=== PATIENT | female | born 1985 ===

== ENCOUNTER 2016-11-28 11:31 | Inpatient (IN) | payer OTHER ==
[2016-11-28 11:37] VITALS: BMI 24.5
[2016-11-28] MEDS ORDERED: Dexamethasone 10 MG in Dextrose 5% In Water 50 ML IV ONE (12:30)
[2016-11-28] MEDS ORDERED: Sodium Chloride 0.9% 1,000 ML IV STA (12:30)
--- NOTE | 2016-11-28 12:37 | ED PDOC ---
HPI: CCC, URI, Sore Throat Time Seen by Provider: 11/28/16 12:08 Chief Complaint (Nursing): ENT Problem History Per: Patient, Family Additional Complaint(s): 31 yo female, no PMH, presents to ED with complaints of sore throat, fever, fatigue and weakness x 1 month now. Pt seen and evaluated by ENT and was diagnosed with [place]. Pt has been on 2 rounds of Zithomax and on Doxy for her sore throat, no relief. no headache or neck pain, no abdominal pain, nausea or vomiting. Pt presented to her PMD, Dr. Vieira, today, who referred her to ED for further evaluation and management. Past Medical History Reviewed: Nursing Documentation, Vital Signs Vital Signs: Last Vital Signs Temp 100 F H 11/28/16 11:36 Pulse 117 H 11/28/16 11:36 Resp BP 130/80 11/28/16 11:36 Pulse Ox 100 11/28/16 18:08 - Medical History PMH: No Chronic Diseases - Surgical History Surgical History: No Surg Hx - Family History Family History: States: No Known Family Hx - Living Arrangements Living Arrangements: With Family - Social History Current smoker - smoking cessation education provided: No Alcohol: Social Drugs: Denies - Allergies Allergies/Adverse Reactions: Allergies Allergy/AdvReac Type Severity Reaction Status Date / Time Penicillins Allergy ITCHING Verified 11/28/16 11:58 Review of Systems ROS Statement: Except As Marked, All Systems Reviewed And Found Negative Constitutional: Positive for: Fever, Weakness ENT: Positive for: Throat Pain Physical Exam - Reviewed Nursing Documentation Reviewed: Yes Vital Signs Reviewed: Yes - Physical Exam Appears: Positive for: Well, Non-toxic, No Acute Distress Head Exam: Positive for: ATRAUMATIC, NORMAL INSPECTION, NORMOCEPHALIC Skin: Positive for: Normal Color, Warm, DRY Eye Exam: Positive for: EOMI, Normal appearance, PERRL ENT: Positive for: Normal ENT Inspection, Pharyngeal Erythema, Tonsillar Exudate , Tonsillar Swelling Neck: Positive for: Normal, Painless ROM Cardiovascular/Chest: Positive for: Regular Rate, Rhythm Respiratory: Positive for: CNT, Normal Breath Sounds Gastrointestinal/Abdominal: Positive for: Normal Exam, Bowel Sounds, Soft Back: Positive for: Normal Inspection Extremity: Positive for: Normal ROM Neurologic/Psych: Positive for: Alert, Oriented - Laboratory Results Result Diagrams: 11/28/16 13:00 11/28/16 13:00 - ECG O2 Sat by Pulse Oximetry: 100 Medical Decision Making Medical Decision Making: IV access established and treatment initiated with IV Morphine, Toradol, Decadron and Clinda -after cultures obtained. Labs resulted and reviewed with Pt who demonstrated full understanding HR: 117 WBC: 16.[address] Impression: Mildly enlarged adenoids palatine tonsils and lingual tonsils. Findings may be post infectious/inflammatory in nature. The palatine tonsils are somewhat heterogeneous in part due to crossing streak and beam hardening artifact arising from dental amalgam. . No large fluid collection seen in the peritonsillar regions bilaterally. Bilateral jugulodigastric lymph nodes. Pt educated on results and demonstrated full understanding. ED MD, Dr. Pastor, aware. Case discussed with Dr. Vieira, who agree with admission at this time. DX: Tonsillitis, Leukocytosis, Early Sepsis Disposition - Clinical Impression Clinical Impression: Leukocytosis, Sepsis - Patient ED Disposition Is Patient to be Admitted: Yes - Disposition Referrals: En Gray MD [Staff Provider] - Disposition Time: 19:48 Condition: STABLE - Pt Status Changed To: Hospital Disposition Of: Observation - POA Present On Arrival: None
[2016-11-28 13:33] LABS: BASO % 0.3 % (0.0-2.0); EOS % 0.1 % (0.0-4.0); HEMATOCRIT 41.6 % (34.0-47.0); LYMPH # 1.2 K/uL (1.0-4.3); LYMPH % 6.9 % (20.0-40.0); MEAN CELL VOLUME 86.7 fl (81.0-99.0); MEAN CORPUSCULAR HEMOGLOBIN 28.7 pg (27.0-31.0); MEAN CORPUSCULAR HGB CONC 33.1 g/dL (33.0-37.0); MEAN PLATELET VOLUME 7.9 fl (7.2-11.7); MONO # 0.7 K/uL (0.0-0.8); NEUT % 88.7 % (50.0-75.0); PLATELET COUNT 328 K/uL (130-400); RED CELL DISTRIBUTION WIDTH 13.4 % (11.5-14.5); WHITE BLOOD COUNT 16.9 K/uL (4.8-10.8)
[2016-11-28 13:48] LABS: ALB/GLOB RATIO 1.2 (1.0-2.1); ALKALINE PHOSPHATASE 73 U/L (38-126); ALT/SGPT 28 U/L (9-52); AST/SGOT 19 U/L (14-36); BILIRUBIN,TOTAL 0.6 mg/dl (0.2-1.3); BLOOD UREA NITROGEN 7 mg/dl (7-17); CALCIUM 9.3 mg/dL (8.4-10.2); CARBON DIOXIDE 26 mmol/L (22-30); CHLORIDE 95 mmol/L (98-107); GFR AFRICAN-AMERICAN > 60; GLUCOSE,RANDOM 91 mg/dL (65-105); POTASSIUM 3.7 MMOL/L (3.6-5.0); SODIUM 134 mmol/l (132-148); TOTAL PROTEIN 8.1 G/DL (6.3-8.2)
[2016-11-28] MEDS ORDERED: Sodium Chloride 0.9% 50 ML IV ONE (15:24)
[2016-11-28] MEDS ORDERED: Iohexol 300 100 ML IJ ONE (15:24)
[2016-11-28 15:28] LABS: NEUTROPHIL 89 % (42-75); TOTAL CELLS COUNTED 100
[2016-11-28 15:29] LABS: LARGE PLATELETS PRESENT
--- NOTE | 2016-11-28 16:55 | CT ---
PROCEDURE: CT scan of the neck dated 11/28/2016 HISTORY: Rule out peritonsillar abscess COMPARISON: No prior TECHNIQUE: CT of the neck performed following intravenous injection of approximately 80 cc Omnipaque 300 contrast material. . Coronal and sagittal reformats generated. Radiation dose: DLP 352.28 mGy-cm FINDINGS: The adenoids are enlarged. There is also enlargement of the palatine tonsils which encroach medially reducing the oral pharyngeal airway on the. Crossing streak and beam hardening artifact arising from dental amalgam limits evaluation. The right palatine tonsil is somewhat heterogeneous however this could be due to at aforementioned streak artifact . . There is a small elliptical shaped area of low attenuation within the right palatine tonsil measures approximately 6 mm x 2.6 mm which could represent some head region may be due to streak artifact. No other suspicious areas of flow fluid seen surrounding the palatine tonsils. Mild enlargement of the lingual tonsils which encroach into the vallecula more so on the right side. Some residual and or retained secretion may also be present within the vallecula. Free margin of the epiglottis unremarkable. The pyriform sinuses are minimally asymmetric however no evidence of obvious mucosal lesions. The true vocal cords are relatively symmetric in and configuration. Thyroid gland is partially obscured by significant streak and beam hardening artifact arising from the dense clavicles and shoulder girdles. No discrete thyroid lesion. The visualized submandibular and parotid glands are unremarkable with no definitive parenchymal calculi or calculi along the expected distribution of the parotid and or submandibular ducts. There are multiple bilateral cervical lymph nodes within the jugulodigastric, posterior cervical spaces, submandibular and submental regions. . The largest left-sided jugulodigastric lymph node measures approximately 2.2 x 1.5 cm. Largest right-sided jugulodigastric lymph node measures approximately 2.8 x 1.7 cm. Few small supraclavicular lymph nodes are also present bilaterally. The visualized cervical vasculature unremarkable. Impression: Mildly enlarged adenoids palatine tonsils and lingual tonsils. Findings may be post infectious/inflammatory in nature. The palatine tonsils are somewhat heterogeneous in part due to crossing streak and beam hardening artifact arising from dental amalgam. . No large fluid collection seen in the peritonsillar regions bilaterally. Bilateral jugulodigastric lymph nodes.
[2016-11-28 18:22] LABS: VENOUS BLOOD GAS BASE EXCESS 3.9 mmol/L (0.0-2.0); VENOUS BLOOD GAS PCO2 38 mmHg (40-60); VENOUS BLOOD PH 7.47 (7.32-7.43)
[2016-11-28] MEDS ORDERED: Oxycodone/Acetaminophen 5/325 mg Tab PO PRN (21:20)
[2016-11-28] MEDS: Dextrose 5%/0.45% NS 1,000 ML IV SCH (22:00)
[2016-11-28] MEDS ORDERED: levoFLOXacin 500 mg in D5W 500 MG/100 ML BAG IVPB SCH (22:23)
[2016-11-29] MEDS: levoFLOXacin 500 mg in D5W 500 MG/100 ML BAG IVPB SCH ×2 (00:28→20:59)
[2016-11-29] MEDS: Clindamycin 300 MG in Sodium Chloride 0.9% 100 ML IVPB SCH ×3 (02:12→16:18)
--- NOTE | 2016-11-29 08:17 | RAD ---
HISTORY: fever,sorethroat COMPARISON: No prior. FINDINGS: LUNGS: No active pulmonary disease. PLEURA: No significant pleural effusion identified, no pneumothorax apparent. CARDIOVASCULAR: Normal. OSSEOUS STRUCTURES: No significant abnormalities. VISUALIZED UPPER ABDOMEN: Normal. OTHER FINDINGS: None. IMPRESSION: No active disease.
[2016-11-29 08:18] LABS: MEAN CELL VOLUME 86.1 fl (81.0-99.0); MEAN CORPUSCULAR HEMOGLOBIN 29.2 pg (27.0-31.0); MEAN CORPUSCULAR HGB CONC 33.9 g/dL (33.0-37.0); RED CELL DISTRIBUTION WIDTH 13.5 % (11.5-14.5); WHITE BLOOD COUNT 8.8 K/uL (4.8-10.8)
[2016-11-29] MEDS ORDERED: levoFLOXacin 500 mg in D5W 500 MG/100 ML BAG IVPB SCH (09:00)
[2016-11-29] MEDS: Dextrose 5%/0.45% NS 1,000 ML IV SCH ×2 (11:06→16:30)
[2016-11-29] MEDS: Dexamethasone 4 MG in Sodium Chloride 0.9% 50 ML IVPB SCH (11:06)
--- NOTE | 2016-11-29 14:32 | HP ---
HISTORY OF PRESENT ILLNESS: The patient is a 31-year-old female who was admitted via the Emergency R oom because of difficulty swallowing, difficulty breathing, fever, chills, sore throat for the past s everal days prior to presentation. She indicates that she had been sick at least the past 1 month wi fevers, chills, and infectious mono and recently developed the above symptoms requiring treatment with doxycycline after she followed up with ENT. She, however, did not get better. She took picture s of the back of the throat which show severe peritonsillar abscess with whitish exudate on the phary nx. She was seen in the office and referred to the Emergency Room for evaluation and therapy. In th e Emergency Room, she was found to have leukocytosis and also had a CAT scan that shows tonsillar eng orgement with inflammation. PAST MEDICAL HISTORY: Unremarkable. SOCIAL HISTORY: She does not smoke or drink. REVIEW OF SYSTEMS: Essentially remarkable for generalized malaise and fever with chills that has bee n persistent for the past several weeks. ALLERGIES: SHE HAS AN ALLERGY TO PENICILLIN. FAMILY HISTORY: Nonrevealing. PHYSICAL EXAMINATION: GENERAL: The patient is alert and oriented, appears to be in moderate distress because of sore throa t with fever and chills and difficulty swallowing. VITAL SIGNS: Remarkable for blood pressure of 144/67, pulse of 71 per minute, respiratory rate 19-20 , O2 sat 98%, temperature in office was 100 degrees Fahrenheit. SKIN: Shows fair turgor. HEENT: Pupils equal, reactive to light and accommodation. Mouth shows peritonsillar exudate, whitis h in nature with huge tonsils almost obstructing the upper airways. LUNGS: Clear. HEART: Regular. No murmurs or gallop. BREASTS: Normal. ABDOMEN: Soft, nontender, no organomegaly. EXTREMITIES: Show no edema or cyanosis. CENTRAL NERVOUS SYSTEM: Grossly intact. LABORATORY DATA: WBC 16.9, hemoglobin 13.8, platelet count of 328,000, neutrophils 87, lymphocyte 6. 9, with large platelets present. Sed rate 66. Sodium 134, potassium 3.7, BUN of 7, creatinine 0.8. Venous blood gas remarkable for pH of 7.47, pO2 of 22, pCO2 of 38, O2 sat of 48.2. Lactate 1.2. In fectious mono assay negative. Group A strep negative. Chest x-ray: No acute cardiopulmonary pathol ogy. CT scan of the neck is remarkable for mildly enlarged adenitis. Findings may be postinflammato ry, infectious in nature. IMPRESSION: Severe peritonsillar abscess with leukocytosis and septicemia. PLAN: Intravenous antibiotics, analgesics for pain, intravenous steroids, oxygen p.r.n. Further the rapy will depend on findings. If the patient is clinically stable in 48 hours, we will probably disc harge her, place on p.o. antibiotics. Incidentally noted the patient also has cold sores of the bita oral area. Silvino Vieira MD cc: 62 TT: 11/29/2016 14:31:31 tn
[2016-11-30 00:18] VITALS: PULSE 61; TEMP 97.7
[2016-11-30] MEDS: Clindamycin 300 MG in Sodium Chloride 0.9% 100 ML IVPB SCH ×2 (00:46→09:14)
[2016-11-30 07:38] VITALS: BP 108/70; RESP 16; O2SAT 99
[2016-11-30] MEDS: Dexamethasone 4 MG in Sodium Chloride 0.9% 50 ML IVPB SCH (09:14)
--- NOTE | 2016-11-30 11:00 | CP.PCM.DIS ---
Provider - Provider Date of Admission: 11/29/16 15:35 Attending physician: Silvino Vieira MD Time Spent in preparation of Discharge (in minutes): 32 Diagnosis - Discharge Diagnosis (1) Peritonsillar abscess Status: Acute (2) Leukocytosis Status: Acute (3) Sepsis Status: Acute Hospital Course - Lab Results Lab Results: Most Recent Lab Values WBC 8.8 K/uL (4.8-10.8) 11/29/16 06:00 RBC 4.41 Mil/uL (3.80-5.20) 11/29/16 06:00 Hgb 12.9 g/dL (12.0-16.0) 11/29/16 06:00 Hct 38.0 % (34.0-47.0) 11/29/16 06:00 MCV 86.1 fl (81.0-99.0) 11/29/16 06:00 MCH 29.2 pg (27.0-31.0) 11/29/16 06:00 MCHC 33.9 g/dL (33.0-37.0) 11/29/16 06:00 RDW 13.5 % (11.5-14.5) 11/29/16 06:00 Plt Count 370 K/uL (130-400) 11/29/16 06:00 MPV 7.9 fl (7.2-11.7) 11/28/16 13:00 Neut % (Auto) 88.7 % (50.0-75.0) H 11/28/16 13:00 Lymph % (Auto) 6.9 % (20.0-40.0) L 11/28/16 13:00 Schleicher % (Auto) 4.0 % (0.0-10.0) 11/28/16 13:00 Eos % (Auto) 0.1 % (0.0-4.0) 11/28/16 13:00 Baso % (Auto) 0.3 % (0.0-2.0) 11/28/16 13:00 Neut # 15.0 K/uL (1.8-7.0) H 11/28/16 13:00 Lymph # 1.2 K/uL (1.0-4.3) 11/28/16 13:00 Schleicher # 0.7 K/uL (0.0-0.8) 11/28/16 13:00 Eos # 0.0 K/uL (0.0-0.7) 11/28/16 13:00 Baso # 0.0 K/uL (0.0-0.2) 11/28/16 13:00 Neutrophils % (Manual) 89 % (42-75) H 11/28/16 13:00 Lymphocytes % (Manual) 8 % (20-50) L 11/28/16 13:00 Monocytes % (Manual) 3 % (0-10) 11/28/16 13:00 Platelet Estimate Normal (NORMAL) 11/28/16 13:00 Large Platelets Present 11/28/16 13:00 Anisocytosis (manual) Slight 11/28/16 13:00 Tear Drop Cells Slight 11/28/16 13:00 ESR 66 mm/hr (0-20) H 11/29/16 06:00 pO2 22 mm/Hg (30-55) L 11/28/16 17:55 VBG pH 7.47 (7.32-7.43) H 11/28/16 17:55 VBG pCO2 38 mmHg (40-60) L 11/28/16 17:55 VBG HCO3 26.5 mmol/L 11/28/16 17:55 VBG Total CO2 28.9 mmol/L (22-28) H 11/28/16 17:55 VBG O2 Sat (Calc) 48.2 % (40-65) 11/28/16 17:55 VBG Base Excess 3.9 mmol/L (0.0-2.0) H 11/28/16 17:55 Sodium 191.0 mmol/L (132-148) H* 11/28/16 17:55 Chloride 120.0 mmol/L (98-107) H 11/28/16 17:55 Glucose 76 mg/dL (65-105) 11/28/16 17:55 Lactate 1.2 mmol/L (0.7-2.1) 11/28/16 17:55 FiO2 21.0 % 11/28/16 17:55 Blood Gas Comments Vbg 11/28/16 17:55 Crit Value Called To Gloria biswas r.n. 11/28/16 17:55 Crit Value Called By Cristal 11/28/16 17:55 Crit Value Read Back Y 11/28/16 17:55 Blood Gas Notified Time 1822 11/28/16 17:55 Sodium 134 mmol/l (132-148) 11/28/16 13:00 Potassium 3.7 MMOL/L (3.6-5.0) 11/28/16 13:00 Chloride 95 mmol/L (98-107) L 11/28/16 13:00 Carbon Dioxide 26 mmol/L (22-30) 11/28/16 13:00 Anion Gap 17 (10-20) 11/28/16 13:00 BUN 7 mg/dl (7-17) 11/28/16 13:00 Creatinine 0.8 mg/dL (0.7-1.2) 11/28/16 13:00 Est GFR ( Amer) > 60 11/28/16 13:00 Est GFR (Non-Af Amer) > 60 11/28/16 13:00 Random Glucose 91 mg/dL (65-105) 11/28/16 13:00 Calcium 9.3 mg/dL (8.4-10.2) 11/28/16 13:00 Total Bilirubin 0.6 mg/dl (0.2-1.3) 11/28/16 13:00 AST 19 U/L (14-36) 11/28/16 13:00 ALT 28 U/L (9-52) 11/28/16 13:00 Alkaline Phosphatase 73 U/L (38-126) 11/28/16 13:00 Total Protein 8.1 G/DL (6.3-8.2) 11/28/16 13:00 Albumin 4.4 g/dL (3.5-5.0) 11/28/16 13:00 Globulin 3.7 gm/dL (2.2-3.9) 11/28/16 13:00 Albumin/Globulin Ratio 1.2 (1.0-2.1) 11/28/16 13:00 Infectious Schleicher Assay Negative (NEGATIVE) 11/28/16 12:48 Grp A Beta Strep Ag Negative (NEGATIVE) 11/28/16 13:00 - Hospital Course Hospital Course: PERITONSILLAR ABSCESS WITH FEVER AND LEUKOCYTOSIS IMPROVED Discharge Exam - Head Exam Head Exam: ATRAUMATIC, NORMAL INSPECTION, NORMOCEPHALIC - Eye Exam Eye Exam: EOMI, Normal appearance, PERRL Pupil Exam: NORMAL ACCOMODATION, PERRL - GI/Abdominal Exam GI & Abdominal Exam: Normal Bowel Sounds - Rectal Exam Rectal Exam: NORMAL INSPECTION - Neurological Exam Neurological exam: Alert, CN II-XII Intact, Normal Gait, Oriented x3, Reflexes Normal - Psychiatric Exam Psychiatric exam: Normal Affect, Normal Mood - Skin Skin Exam: Dry, Intact, Normal Color, Warm Discharge Plan - Follow Up Plan Condition: STABLE Disposition: HOME/ ROUTINE Patient education suggested?: Yes Additional Instructions: DISCHARGE TODAY ON PO CLINDAMYCIN,OMEPRAZOLE AND MEDROL JOMAR Referrals: En Gary MD [Staff Provider] -
== END 2016-11-30 13:47 | disposition home or self-care (01) | DRG 872 ==
LOC: H.ER 11:31 → SUPCPDRO 11:31 → H.ERHOLD 17:53 → H.MEDSURG1 20:38 → OBSVTOIN 11-29 15:35
PROVIDERS: ADMIT Internal Medicine Pulmonary Disease; ATTEND Internal Medicine Pulmonary Disease
DX: A41.9 Sepsis, unspecified organism (principal); J36 Peritonsillar abscess; Z88.0 Allergy status to penicillin

== ENCOUNTER 2017-03-24 06:50 | Emergency (ER) | payer OTHER ==
[2017-03-24 07:27] VITALS: BMI 27.4
--- NOTE | 2017-03-24 07:49 | ED PDOC ---
HPI: Eye Injury/Pain Time Seen by Provider: 03/24/17 07:23 Chief Complaint (Nursing): Eye Problem History Per: Patient History/Exam Limitations: no limitations Onset/Duration Of Symptoms: Days (1), Gradual Current Symptoms Are (Timing): Still Present Severity: Moderate Quality: Burning Wears Contact Lens?: Yes Associated Symptoms: Pain. denies: Decreased Vision, Swelling, FB Sensation, Itching, Discharge From Eye Additional History Per: Patient Additional Complaint(s): bl eye irritation and redness with discharge worse on the right slept with contact lens last night Past Medical History Reviewed: Historical Data, Nursing Documentation, Vital Signs - Medical History PMH: Diverticulitis, Hypercholesterolemia - Family History Family History: States: Unknown Family Hx - Living Arrangements Living Arrangements: With Family - Social History Current smoker - smoking cessation education provided: No - Home Medications Home Medications: Ambulatory Orders Medication Instructions Recorded Acetaminophen [Tylenol 325mg tab] 650 mg PO Q4 PRN tab 11/30/16 Clindamycin [Cleocin] 0 mg PO Q8 #21 cap 11/30/16 Fluconazole [Diflucan] 150 mg PO ONCE #1 tab 11/30/16 Methylprednisolone [Medrol Dose 4 mg PO ASDIR #21 mg 11/30/16 Pack (21 tabs)] Omeprazole 20 mg PO BID #60 tablet. 11/30/16 - Allergies Allergies/Adverse Reactions: Allergies Allergy/AdvReac Type Severity Reaction Status Date / Time Penicillins Allergy ITCHING Verified 03/24/17 07:36 Review of Systems ROS Statement: Except As Marked, All Systems Reviewed And Found Negative Constitutional: Negative for: Fever, Chills Eyes: Positive for: Eyelid Inflammation, Redness Cardiovascular: Negative for: Chest Pain Respiratory: Negative for: Cough, Shortness of Breath Gastrointestinal: Negative for: Nausea, Vomiting, Abdominal Pain Neurological: Negative for: Weakness, Numbness, Headache, Dizziness Physical Exam - Reviewed Nursing Documentation Reviewed: Yes Vital Signs Reviewed: Yes - Physical Exam Appears: Positive for: Uncomfortable Head Exam: Positive for: ATRAUMATIC, NORMAL INSPECTION, NORMOCEPHALIC Eye Exam: Positive for: PERRL, Conjunctival injection (bl), Other (right eye with a 1mm corneal ulcer at 12 oclock, bl conjuntival injection, mild purulent d /c). Negative for: Periorbital swelling, Periorbital tenderness, Scleral icterus Neck: Positive for: Normal, Painless ROM, Supple Cardiovascular/Chest: Positive for: Regular Rate, Rhythm Respiratory: Positive for: Normal Breath Sounds Neurologic/Psych: Positive for: Alert, bi developer II-XII, Oriented, Mood/Affect (calm) , Gait (steady). Negative for: Motor/Sensory Deficits, Aphasia, Facial Droop - Progress ED Course And Treament: consulted Dr gonzalez advise eye patch and will be seen immediately in his office. pt agree's with plan. pt leaves ambulatory and in good spirits. Condition: Improved Disposition - Clinical Impression Clinical Impression: Corneal ulcer of right eye - Patient ED Disposition Is Patient to be Admitted: No Counseled Patient/Family Regarding: Studies Performed, Diagnosis, Need For Followup - Disposition Referrals: Giovani Gonzalez MD [Staff Provider] - (immediately today) Disposition: Routine/Home Disposition Time: 07:30 Condition: GOOD Forms: [facility] (K[place]itian)
[2017-03-24 08:28] VITALS: BP 120/78; PULSE 78; RESP 19; TEMP 97.7; O2SAT 98
== END 2017-03-24 08:34 | disposition home or self-care (01) ==
LOC: H.ER 06:50
DX: H16.001 Unspecified corneal ulcer, right eye (principal); Z88.0 Allergy status to penicillin